=== PATIENT | male | born 1970 | race Caucasian/White ===

== ENCOUNTER → 2016-05-14 | Outpatient (CLI) | payer BC ==
[~2016-05-14] MED LIST: CLC150 PO; CPR500 PO
--- NOTE | 2016-05-14 09:50 | DIAGNOSTIC IMAGING REPORT ---
MRI OF THE CERVICAL SPINE WITHOUT IV CONTRAST CLINICAL HISTORY: Left upper extremity numbness. Neck pain. COMPARISON STUDY: No priors. TECHNIQUE: MRI of the cervical spine is performed utilizing various T1 and T2 sequences in the axial and sagittal planes. IV contrast was not administered for this examination. The examination is degraded by open MRI technique. FINDINGS: Cervical spine: Vertebral body height and alignment are maintained throughout the cervical spine. No destructive bony lesion is seen. The atlantodental articulation appears maintained. The spinous processes appear intact. Small anterior osteophytes are noted in the lower cervical region. Intervertebral discs: Mild degenerative disc desiccation is seen throughout the cervical region. The disc spaces are preserved. Spinal cord: The cervical spinal cord is normal in morphology and signal intensity. C2-C3: A posterior disc osteophyte complex abuts the ventral cord. Uncovertebral and facet arthropathy causes minimal left-sided neural foraminal stenosis. C3-C4: A posterior disc osteophyte complex eccentric to the left effaces the ventral subarachnoid space. Uncovertebral arthropathy causes mild left-sided neural foraminal stenosis. C4-C5: Uncovertebral and facet arthropathy are of no consequence. The central canal and neural foramina are widely patent. C5-C6: A posterior disc osteophyte complex effaces the ventral cord. Uncovertebral and facet arthropathy cause moderate left and minimal right neural foraminal stenosis. C6-C7: A posterior disc osteophyte complex eccentric to the right effaces the ventral subarachnoid space. Uncovertebral and facet arthropathy cause mild to moderate bilateral neural foraminal stenosis, right greater than left. C7-T1: Unremarkable. Soft tissues: The prevertebral and paraspinous soft tissues are normal as visualized. Brain parenchyma: Partially imaged brain parenchyma at the skull base is within normal limits. IMPRESSION: 1. Mild multilevel cervical spondylosis as detailed above. This is greatest at C5-C6 where a posterior disc osteophyte complex effaces the ventral cord. See discussion for detailed level by level analysis. 2. The cervical spinal cord is normal in morphology and signal intensity. Dictated: 05/14/2016 8:59 AM Transcribed: 05/14/2016 9:50 AM Ryan Electronically signed by: Luis Perkins M.D. 05/14/2016 10:09 AM Dictated Date/Time: 05/14/2016 8:59 AM
== END | disposition home or self-care (01) ==
LOC: C.OPENMRI 07:53
PROVIDERS: ATTEND Psychiatry & Neurology Neurology
DX: M54.12 Radiculopathy, cervical region (principal); M47.892 Other spondylosis, cervical region

== ENCOUNTER → 2017-06-26 | Day surgery (SDC) | payer BC ==
[2017-06-19 09:32] VITALS: Ht 177.8 cm; Wt 143.2 kg
[~2017-06-26] VITALS: Ht 177.8 cm; Wt 143.2 kg
[~2017-06-26] MED LIST changes: -CLC150 PO; -CPR500 PO; +LEVO25TA5 PO; +LIDOCAINE HCL 2% 2 ML VIAL (20MG/ML) ONE; +ONDANSETRON INJ 2 MG/ML 2 ML VIAL IV PRN; +PROPOFOL IV EMULSION 10 MG/ML 20 ML VIAL ONE; +TRMO2580 TOP
--- NOTE | 2017-06-26 10:07 | Endo History and Physical ---
History & Physical Date of Service: June 26, 2017. Chief Complaint: Anemia Referring Physician: Dr. Lugo History of Present Illness Patient referred for upper endoscopy and colonoscopy to evaluate for recent diagnosis of iron deficiency anemia. He has no specific symptoms or complaints today. There is no family history of stomach cancer or colon cancer or celiac disease. Past Surgical History Hx Cardiac Surgery: No Hx Internal Defibrillator: No Hx Pacemaker: No Hx Abdominal Surgery: No Hx of Implantable Prosthesis: No Hx Post-Op Nausea and Vomiting: Yes Hx Cancer Surgery: No Hx Thoracic Surgery: No Hx Orthopedic: No Hx Urinary Tract Surgery: No Family History IBD Social History Smoking Status: Never Smoker Hx Substance Use: No Hx Alcohol Use: No Allergies Coded Allergies: Prednisone (Verified Allergy, Severe, HIVES, 06/26/17) DIZZINESS, PERSPRIATION Penicillins (Verified Allergy, Mild, RASH, 06/26/17) Current Medications Reported Home Medications Medications Dose Route/Sig Max Daily Dose Days Date Category Triamcinolone Acet 0.025% (Triamcinolone Acetonide (Topic) 0.025 % Oin 1 Appln TOP BID 06/19/17 Reported Levothyroxine Sodium 25 Mcg Tab 1 Tab PO DAILY 30 06/19/17 Reported Vital Signs Weight (Kilograms): 143.18 Height (Feet): 5 Height (Inches): 10 Date Time Temp Pulse Resp B/P (MAP) Pulse Ox O2 Delivery O2 Flow Rate FiO2 06/26/17 09:55 36.8 70 18 129/75 (93) 96 Room Air Physical Exam General Appearance: no apparent distress Respiratory/Chest: Auscultation: breath sounds normal Cardiovascular: Heart Auscultation: RRR Abdomen: Inspection & Palpation: soft Assessment and Plan EGD and colonoscopy to evaluate history of iron deficiency anemia. We have discussed the risks to include bleeding, infection, perforation, missed colon polyps and need for follow-up studies.
--- NOTE | 2017-06-26 10:44 | Discharge Instructions ---
Endoscopy Patient Instructions Date / Procedure(s) Performed June 26, 2017. Colonoscopy, EGD Allergy Information Coded Allergies: Prednisone (Verified Allergy, Severe, HIVES, 06/26/17) DIZZINESS, PERSPRIATION Penicillins (Verified Allergy, Mild, RASH, 06/26/17) Discharge Date / Findings June 26, 2017. Normal esophagus Several gastric polyps Mild gastritis Normal small intestine Internal hemorrhoids Normal terminal ileum Medication Instructions Reported Home Medications Medications Dose Route/Sig Max Daily Dose Days Date Category Triamcinolone Acet 0.025% (Triamcinolone Acetonide (Topic) 0.025 % Oin 1 Appln TOP BID 06/19/17 Reported Levothyroxine Sodium 25 Mcg Tab 1 Tab PO DAILY 30 06/19/17 Reported Provider Instructions Activity Restrictions - No exercising or heavy lifting for 24 hours. - Do not drink alcohol the day of the procedure. - Do not drive a car or operate machinery until the day after the procedure. - Do not make any important decisions or sign important papers in 24 hours after the procedure. Following Day: - Return to full activity which may include returning to work/school. Diet Start your diet with liquids and light foods (jello, soup, juice, toast). Then eat your usual diet if not nauseated. Treatment For Common After Affects For mild abdominal pain, bloating, or excessive gas: - Rest - Eat lightly - Lie on right side Follow-Up Information Await pathology results Repeat colonoscopy in 10 years for screening purposes Consider use of an iron supplement for 3 months Sitter further evaluation with a small bowel follow-through Anesthesia Information What You Should Know You have had a procedure that required some medicine to reduce anxiety and discomfort. This treatment is called moderate sedation. After receiving the treatment, you may be sleepy, but you will be able to breathe on your own. The effects of the treatment may last for several hours. Follow these instructions along with Activity/Diet recommendations noted above: * Do NOT do anything where dizziness or clumsiness would be dangerous. * Rest quietly at home today, then you can be up and about tomorrow. * Have a responsible person stay with you the rest of today. * You may have had an I.V. today. If so, you may take the dressing off later today. Recommendations Call your doctor if: * Trouble breathing * Continuous vomiting for more than 24 hours * Temperature above 101 degrees * Severe abdominal pain or bloating * Pain not relieved by pain medicine ordered * There is increased drainage or redness from any incision * A large amount of rectal bleeding greater than 2-3 tablespoons. (If you had a polyp/s removed or have hemorrhoids, a small amount of blood - from the rectum is to be expected.) * You have any unanswered questions or concerns. IN THE EVENT OF A SERIOUS EMERGENCY, GO TO THE NEAREST EMERGENCY ROOM Your discharge instructions were prepared by provider Alaina Plata. Patient Instructions Signature Page Dave Fontaine Patient (or Guardian) Signature/Date: I have read and understand the instructions given to me by my caregivers. Caregiver/RN/Doctor Signature/Date: The above-named patient and/or guardian has received patient instructions on this date. + Original Patient Signature Page (only) stays with chart. Please make copy for patient.
--- NOTE | 2017-06-26 10:47 | GI REPORT ---
Patient Name: Dave Fontaine Procedure Date: 06/26/2017 10:12 AM Date of : 1970 Admit Type: Outpatient Age: 46 Gender: Male Attending MD: Alaina Plata DO Procedure: Upper GI endoscopy Providers: Alaina Plata DO Referring MD: Mariano Lugo Indications: Iron deficiency anemia Medicines: Monitored Anesthesia Care Complications: No immediate complications. Estimated blood loss: Minimal. Estimated Blood Loss: Estimated blood loss was minimal. Procedure: Pre-Anesthesia Assessment: - Prior to the procedure, a History and Physical was performed, and patient medications, allergies and sensitivities were reviewed. The patient's tolerance of previous anesthesia was reviewed. - The risks and benefits of the procedure and the sedation options and risks were discussed with the patient. All questions were answered and informed consent was obtained. - Patient identification and proposed procedure were verified prior to the procedure by the physician, the nurse and the pesticide applicator. The procedure was verified in the procedure room. - Pre-procedure physical examination revealed no contraindications to sedation. - ASA Grade Assessment: III - A patient with severe systemic disease. - After reviewing the risks and benefits, the patient was deemed in satisfactory condition to undergo the procedure. - The anesthesia plan was to use monitored anesthesia care (MAC). - Immediately prior to administration of medications, the patient was re-assessed for adequacy to receive sedatives. - The heart rate, respiratory rate, oxygen saturations, blood pressure, adequacy of pulmonary ventilation, and response to care were monitored throughout the procedure. - The physical status of the patient was re-assessed after the procedure. After obtaining informed consent, the endoscope was passed under direct vision. Throughout the procedure, the patient's blood pressure, pulse, and oxygen saturations were monitored continuously. The scope was introduced through the mouth, and advanced to third part of duodenum. The upper GI endoscopy was accomplished without difficulty. The patient tolerated the procedure well. Findings: The examined esophagus was normal. The Z-line was regular and was found 39 cm from the incisors. The gastric fundus was normal. Multiple 3 to 5 mm sessile polyps with no bleeding and no stigmata of recent bleeding were found in the gastric body. The polyp was removed with a cold snare. Resection was complete, and retrieval was complete using a snare. Diffuse mild inflammation characterized by erythema and granularity was found in the gastric antrum. Biopsies were taken with a cold forceps for histology. Estimated blood loss was minimal. The examined duodenum was normal. Biopsies for histology were taken with a cold forceps for evaluation of celiac disease. Estimated blood loss was minimal. Impression: - Normal esophagus. - Z-line regular, 39 cm from the incisors. - Normal gastric fundus. - Multiple gastric polyps. Resected and retrieved. - Mild antral gastritis. Biopsied. - Normal examined duodenum. Biopsied. Recommendation: - Perform a colonoscopy today. - Await pathology results. - Repeat upper endoscopy for surveillance based on pathology results. Alaina Plata D.O. Alaina Plata, 06/26/2017 10:47:18 AM This report has been signed electronically. Note Initiated On: 06/26/2017 10:12 AM Number of Addenda: 0 I attest to the content of the Intraoperative Record and orders documented therein, exceptions below {[id number]}
--- NOTE | 2017-06-26 10:50 | GI REPORT ---
Patient Name: Dave Fontaine Procedure Date: 06/26/2017 10:27 AM Date of : 1970 Admit Type: Outpatient Age: 46 Gender: Male Attending MD: Alaina Plata DO Procedure: Colonoscopy Providers: Alaina Plata DO Referring MD: Mariano Lugo Indications: Screening for colorectal malignant neoplasm Medicines: Monitored Anesthesia Care Complications: No immediate complications. Estimated blood loss: Minimal. Estimated Blood Loss: Estimated blood loss was minimal. Procedure: Pre-Anesthesia Assessment: - Prior to the procedure, a History and Physical was performed, and patient medications, allergies and sensitivities were reviewed. The patient's tolerance of previous anesthesia was reviewed. - The risks and benefits of the procedure and the sedation options and risks were discussed with the patient. All questions were answered and informed consent was obtained. - Patient identification and proposed procedure were verified prior to the procedure by the physician, the nurse and the stock transfer clerk. The procedure was verified in the procedure room. - Pre-procedure physical examination revealed no contraindications to sedation. - ASA Grade Assessment: III - A patient with severe systemic disease. - After reviewing the risks and benefits, the patient was deemed in satisfactory condition to undergo the procedure. - The anesthesia plan was to use monitored anesthesia care (MAC). - Immediately prior to administration of medications, the patient was re-assessed for adequacy to receive sedatives. - The heart rate, respiratory rate, oxygen saturations, blood pressure, adequacy of pulmonary ventilation, and response to care were monitored throughout the procedure. - The physical status of the patient was re-assessed after the procedure. After I obtained informed consent, the scope was passed under direct vision. Throughout the procedure, the patient's blood pressure, pulse, and oxygen saturations were monitored continuously. The scope was introduced through the anus and advanced to the terminal ileum. The colonoscopy was performed without difficulty. The patient tolerated the procedure well. The quality of the bowel preparation was good. Findings: The perianal and digital rectal examinations were normal. Pertinent negatives include normal sphincter tone. The terminal ileum appeared normal. Normal cecal retroflexion Internal hemorrhoids were found during retroflexion. The hemorrhoids were mild. The exam was otherwise without abnormality. Impression: - The examined portion of the ileum was normal. - Internal hemorrhoids. - The examination was otherwise normal. - No specimens collected. Recommendation: - Discharge patient to home (ambulatory). - Advance diet as tolerated today. - Repeat colonoscopy in 10 years for screening purposes. - No cause of iron deficiency seen today. Consider further evaluation with a Ct of the abdomen to evaluate the small bowel. Would also consider use of an iron supplement for 6 to 8 weeks. Iron deficiency may be related to his prior plasma / blood donation. - Return to referring physician as previously scheduled. Alaina Plata D.O. Alaina Plata, 06/26/2017 10:50:08 AM This report has been signed electronically. Note Initiated On: 06/26/2017 10:27 AM Number of Addenda: 0 I attest to the content of the Intraoperative Record and orders documented therein, exceptions below {[id number]}
--- NOTE | 2017-06-26 10:57 | Anesthesiology Progress Note ---
Anesthesia Post Op Note Date & Time June 26, 2017 at 10:57 Vital Signs Pain Intensity: 0 Vital Signs Past 12 Hours Date Time Temp Pulse Resp B/P (MAP) Pulse Ox O2 Delivery O2 Flow Rate FiO2 06/26/17 10:45 81 16 103/61 (75) 96 Room Air 06/26/17 09:55 36.8 70 18 129/75 (93) 96 Room Air Notes Mental Status: alert / awake / arousable, participated in evaluation Pt Amnestic to Procedure: Yes Nausea / Vomiting: adequately controlled Pain: adequately controlled Airway Patency, RR, SpO2: stable & adequate BP & HR: stable & adequate Hydration State: stable & adequate Anesthetic Complications: no major complications apparent
[2017-06-26 11:15] VITALS: BP 113/67; PULSE 77; O2SAT 97
== END | disposition home or self-care (01) ==
LOC: C.GI 09:24
PROVIDERS: ATTEND Internal Medicine Gastroenterology
DX: D50.9 Iron deficiency anemia, unspecified (principal); K64.8 Other hemorrhoids; K29.50 Unspecified chronic gastritis without bleeding; K31.7 Polyp of stomach and duodenum; G47.33 Obstructive sleep apnea (adult) (pediatric); E66.9 Obesity, unspecified; Z88.0 Allergy status to penicillin; Z88.8 Allergy status to other drugs, medicaments and biological substances; Z79.899 Other long term (current) drug therapy